=== PATIENT | male | born 1955 | race American Indian/Alaskan Native ===

== ENCOUNTER 2022-09-23 08:44 | Emergency (ER) | payer OTHER, MEDICARE ==
[~2022-09-23] VITALS: Ht 175.3 cm; Wt 124.7 kg
[2022-09-23] MEDS ORDERED: ACTOS30 MG PO (11:59)
[2022-09-23] MEDS ORDERED: NORVASC5 MG PO (11:59)
[2022-09-23] MEDS ORDERED: COZAAR25 MG PO (11:59)
[2022-09-23] MEDS ORDERED: CYCLOBENZAPRINE10 MG PO (11:59)
[2022-09-23] MEDS ORDERED: GLIMEPIRIDE2 MG PO (11:59)
[2022-09-23] MEDS ORDERED: PERCOCET 5-3251 EACH PO (11:59)
[2022-09-23] MEDS ORDERED: METFORMIN HCL1000 MG PO (11:59)
== END 2022-09-23 12:36 | disposition home or self-care (01) ==
LOC: ED 08:44 → EDBD 08:45 → ED 12:36
DX: S02.2XXA Fracture of nasal bones, initial encounter for closed fracture (principal); S32.019A Unspecified fracture of first lumbar vertebra, initial encounter for closed fracture; S32.029A Unspecified fracture of second lumbar vertebra, initial encounter for closed fracture; V49.9XXA Car occupant (driver) (passenger) injured in unspecified traffic accident, initial encounter
CPT/HCPCS: 36415; 70450; 71045; 72125; 72128; 72131; 73610; 80053; 82150; 82553; 83605; 83690; 85025; 86850; 86900; 86901; 94640; 96374; 96375; 99285-25; G0480; J1170; J2405